=== PATIENT | female | born 1995 | race Caucasian/White ===

== ENCOUNTER 2021-01-04 15:54 | Emergency (ER) | payer OTHER ==
[~2021-01-04] VITALS: Ht 167.6 cm; Wt 77.1 kg
--- OUTSIDE RECORDS SUMMARY | 2021-01-04 16:00 | XMS ---
PreManage Notification: FRANCISCO CORTEZ [employer] Events No recent Security Events currently on file CRITERIA MET - COVID-19 Positive Lab Results - ED - Positive COVID-19 Lab Result - [facility] PROVIDERS There are no care providers on record at this time. Gael has no Care Guidelines for this patient. E.DCarey VISIT COUNT (12 MO.) [address] [place] [id number] ARNA[address] Velez TOTAL 2 NOTE: Visits indicate total known visits. ED/UCC VISIT TRACKING (12 MO.) 01/04/2021 15:55 [facility] TYPE: Emergency COMPLAINT: - RT SIDE PAIN 06/12/2020 10:03 [facility] TYPE: Emergency DIAGNOSES: - Muscle spasm of back - BACK PAIN INPATIENT VISIT TRACKING (12 MO.) 12[facility]25[facility]2020 21:[facility] DIAGNOSES: - Scheduled Induction [email or web address]
[2021-01-04] MEDS ORDERED: AUGMENTIN 875-1 EACH PO (21:01)
== END 2021-01-04 21:12 | disposition home or self-care (01) ==
LOC: ED 15:54
DX: O99.893 Other specified diseases and conditions complicating puerperium (principal); R10.31 Right lower quadrant pain
CPT/HCPCS: 74177; 76830; 76856; 80053; 81001; 83605; 83690; 85025; 87088; 96375; 99284-25; J1170; J2405; J7030; Q9967